=== PATIENT | female | born 1985 | race Caucasian/White ===

== ENCOUNTER 2017-01-29 08:51 | Emergency (ER) | payer OTHER ==
[~2017-01-29] VITALS: Ht 160 cm; Wt 61.2 kg
[~2017-01-29 08:51] MED LIST: MOTRIN 800MG T800 MG PO; PRENATAL1 TA2 PO
[2017-01-29 09:00] VITALS: BP 116/81
--- NOTE | 2017-01-29 09:31 | ED GENERAL ADULT ---
History of Present Illness General Chief Complaint: Skin Rash/ Abcess Stated Complaint: RASH ALL OVER BODY Source: patient Exam Limitations: no limitations Vital Signs & Intake/Output Vital Signs & Intake/Output Vital Signs Date Time Temp Pulse Resp B/P B/P Pulse O2 O2 Flow FiO2 Mean Ox Delivery Rate 01/29 1033 98 01/29 0900 100.2 93 20 116/81 96 Room Air Allergies Coded Allergies: NO KNOWN ALLERGIES (09/18/11) Reconcile Medications Hydroxyzine Pamoate (Vistaril) 25 MG CAPSULE 1 CAP PO TID PRN ITCHING Minocycline HCl 75 MG TABLET 1 CAP PO QPM UNKNOWN (Reported) Prednisone 20 MG TABLET 2 TAB PO DAILY ALLERGIC REACTION Triage Note: WOKE UP WITH ITCHY RASH ALL OVER ARMS YESTERDAY. WENT TO PHARMACY AND PHARMACIST TOLD HER TO TAKE BENEDRYL AND CORTISONE WHICH HELPED A LITTLE BUT TODAY RASH IS SPREADING Triage Nurses Notes Reviewed? yes Onset: Abrupt Duration: day(s): Timing: recent history : No Patient currently breastfeeds: No HPI: 01/29/17 10:21 AM 31-year-old female presents to the emergency department with a sudden onset of itchy rash to the arms and legs. According to the patient she was in her usual state of health until yesterday when she developed itching and rash predominantly on the left arm ; this morning she developed a severe itchy rash to both the arms and legs. She denies fever or other complaints. There is no rash except to her arms and her legs. She denies any tick bite. The patient has been on minocycline for the past 2 weeks as she was being treated for acne. The onset of the symptoms were abrupt, the duration has been approximately the last 24 hours, the severity is significant; as her symptoms required her to come to the emergency department for care. She denies any possibility of . She denies any known drug allergies. Past History Travel History Traveled to [place] past 21 day No Medical History Any Pertinent Medical History? see below for history Musculoskeletal: ACNE Tetanus Vaccine: Surgical History Surgical History: N Psychosocial History What is your primary language Vietnamese Tobacco Use: Never used ETOH Use: denies use Illicit Drug Use: denies illicit drug use Family History Hx Contributory? No Review of Systems Review of Systems Constitutional: Denies: fever. EENTM: Denies: throat pain. Respiratory: Denies: cough, short of breath. Cardiovascular: Denies: chest pain. GI: Denies: abdominal pain. Genitourinary: Reports: no symptoms. Musculoskeletal: Reports: no symptoms. Skin: Reports: see HPI. Neurological/Psychological: Denies: headache. Hematologic/Endocrine: Denies: bruising, bleeding. Physical Exam Physical Exam General Appearance: well developed/nourished, alert, awake, anxious, mild distress Head: atraumatic, normal appearance Eyes: Bilateral: normal appearance, PERRL, EOMI. Ears, Nose, Throat: normal pharynx, normal ENT inspection Neck: normal inspection, supple Respiratory: normal breath sounds, chest non-tender, no respiratory distress Cardiovascular: regular rate/rhythm Peripheral Pulses: 4+ radial (R), 4+ radial (L) Gastrointestinal: soft, non-tender Back: normal range of motion Extremities: normal range of motion Neurologic/Psych: no motor/sensory deficits, awake, oriented x 3, normal gait Skin: rash Comments: Patient has urticaria and patches of erythema to both arms and the lower extremities. The remainder of the physical exam is unremarkable Core Measures ACS in differential dx? No CVA/TIA Diagnosis: No Severe Sepsis Present: No Septic Shock Present: No Progress Differential Diagnoses I considered the following diagnoses in my evaluation of the patient: [Contact dermatitis, allergic reaction, Lyme disease, insect bite, cellulitis, adverse drug reaction] Plan of Care: Current Medications Sig/Marlene Start time Last Medication Dose Stop Time Status Admin Hydroxyzine HCl 25 MG ONCE ONE 01/29 1015 UNVr (Atarax) 01/29 1016 Prednisone 60 MG ONCE ONE 01/29 1015 UNVr 01/29 1016 Initial ED EKG: none Departure Departure Disposition: HOME OR SELF CARE Condition: Stable Clinical Impression Primary Impression: Allergic reaction Referrals: ANKUSH STERN MD (PCP/Family) Departure Forms: Customer Survey General Discharge Information Prescriptions: Current Visit Scripts Prednisone 2 TAB PO DAILY #10 TAB Hydroxyzine Pamoate (Vistaril) 1 CAP PO TID PRN ITCHING #30 CAP Comments 01/29/17 On physical examination the patient has urticaria on the arms and legs. Also some on the low back. I suspect she has contact dermatitis, as she has an itchy urticarial rash predominantly on the exposed areas. An allergic reaction to the minocycline was considered however the patient has been on this drug for 2 weeks, and the rash is only on exposed areas. Critical Care Note Critical Care Note Critical Care Time: non-applicable
[2017-01-29] MEDS ORDERED: MINOCYCLINE HCL75 M1 PO (09:55)
[2017-01-29] MEDS ORDERED: VISTARIL25 M1 PO (10:16)
[2017-01-29] MEDS ORDERED: PREDNISONE20 M1 PO (10:16)
== END 2017-01-29 10:15 ==
LOC: ERH 08:51
DX: T78.40XA Allergy, unspecified, initial encounter (principal)